=== PATIENT | male | born 2000 | race Two or more races ===

== ENCOUNTER 2025-07-25 04:12 | Emergency (ER) | payer MEDICAID, SELFPAY ==
[2025-07-25 04:18] VITALS: BMI 20.9
[2025-07-25 04:25] VITALS: BP 129/69; PULSE 92; RESP 17; TEMP 37.3; O2SAT 97
--- NOTE | 2025-07-25 04:39 | EDNOTE_ITS ---
Lower Extremity Injury RME/HPI General Chief Complaint: Extremity Injury, Lower Stated Complaint: R KNEE INJURY Time Seen by Provider: 07/25/25 04:34 Arrival date/time: 07/25/25 04:12 25M with no significant PMH presents to ED with R thigh pain after he stepped in a pot hole. Patient admits to drinking. Limitations: no limitations Related Data Previous Rx's ?Medication ?Instructions ?Recorded cephalexin 500 mg capsule 500 mg PO TID #15 caps 08/28 ondansetron 4 mg disintegrating 4 mg PO Q8H PRN nausea and 07/25/22 tablet vomiting #10 tabs diphenhydramine HCl 25 mg capsule 25 mg PO TID PRN all ergy symptoms 01/02/24 (Benadryl) #20 caps prednisone 20 mg tablet 20 mg PO QDAY #3 tabs hydrocortisone 2.5 % topical cream 1 applic topical BI D PRN itching 01/16/24 #30 grams permethrin 5 % topical cream 1 applic topical Q14D 2 d oses #60 01/16/24 grams Allergies Allergy/AdvReac Type Severity Reaction Status Date / Time No Known Allergies Allergy Verified 07/25/25 04:21 Review of Systems Review of Systems Systems Reviewed: All systems reviewed, normal except as documented Constitutional Constitutional: Reports system reviewed and no additional complaints, except as documented, Denies fever(s) and Denies headache(s) ENT Ears, Nose, Mouth, and Throat: Denies disequilibrium and Denies headache(s) Cardiovascular Cardiovascular: Reports system reviewed and no additional complaints, except as documented, Denies chest pain and Denies dyspnea Respiratory Respiratory: Reports system reviewed and no additional complaints, except as documented, Denies cough and Denies dyspnea Gastrointestinal Gastrointestinal: Reports system reviewed and no additional complaints, except as documented, Denies abdominal pain, Denies nausea and Denies vomiting Musculoskeletal Musculoskeletal: Reports as per HPI and Reports arthralgias Neurologic Neurologic: Reports system reviewed and no additional complaints, except as docu mented, Denies confusion, Denies disequilibrium and Denies headache(s) Psychiatric Psychiatric: Denies confusion Past Medical History Past Medical History CARDIAC: Negative Congestive Heart Failure RESPIRATORY: Negative Chronic Obstructive Pulmonary Disease (COPD) GENITOURINARY: Negative Renal Disease ENDOCRINE: Negative Diabetes Mellitus Type 1 or Diabetes Mellitus Type 2 Social History SMOKING STATUS: Never smoker ED Exam General Limitations: Present no limitations General appearance: Present alert and in no apparent distress Head Head exam: Present atraumatic Eye Eye exam: Present normal appearance, PERRL and EOMI ENT ENT exam: Present normal exam, normal oropharynx and mucous membranes moist Neck Neck exam: Present normal inspection, full ROM and trachea midline Chest Chest inspection: Present normal inspection and symmetric chest wall rise Respiratory Respiratory exam: Present normal lung sounds bilaterally Cardiovascular Cardiovascular exam: Present regular rate, normal rhythm and normal heart sounds Abdominal Exam Abdominal exam: Present soft and normal bowel sounds Extremities Exam Extremities exam: Present normal inspection and full ROM Back Exam Back exam: Present normal inspection and full ROM Neurological Exam Neurological exam: Present alert, oriented X3 and CN II-XII intact Psychiatric Psychiatric exam: Present normal affect and normal mood Skin Skin exam: Present warm, dry, intact and normal color Course Quality Measures none Orders Category Date Time Status Naproxen [Naprosyn] Med 07/25/25 04:35 Discontinued 500 mg PO X1 ONE Vital Signs Vital signs: Vital Signs Temperature 99.2 F 07/25/25 04:25 Pulse Rate 92 07/25/25 04:25 Respiratory Rate 17 07/25/25 04:25 Blood Pressure 129/69 07/25/25 04:25 Pulse Oximetry (%) 97 07/25/25 04:25 Oxygen Delivery Method Room Air 07/25/25 04:25 O2 at 97% on RA and WNLs Extremity Injury, Lower MDM Narrative MDM Narrative:: 25M with no significant PMH presents to ED with R thigh pain after he stepped in a pot hole. Patient admits to drinking. Physical exam reveals no gross RLE abnormalities. ROM intact. Gait slight limp, but can bear weight. Patient is afebrile, calm, but intoxicated. Meds and automobile travel club counselor given. [id number], who is not intoxicated is going to drive him home. Patient data External records reviewed:: [facility] previous records Clinical information provided by:: patient Social determinants that could affect healthcare access:: alcohol use Patient has the following chronic illnesses:: none How is presenting disease/condition affected by chronic disease/condition?: no chronic disease Evaluation data The following diagnostics were reviewed and interpreted by me:: other (specify) (none) Lab and/or radiology exams considered but not ordered:: not ordered Interpretation Summary: n/a Medications / Prescriptions Medications or Prescriptions considered but not ordered:: ordered Medication administrations:: Medication Administration History Discontinued Medications Naproxen (Naproxen 250 Mg Tablet) 500 mg PO X1 ONE Stop: 07/25/25 04:36 above Consultations Consultation(s) initiated? (list below): No Diagnosis Extremity Injury, Lower Differential Diagnosis: ankle sprain and strain, acute internal derangement of knee, fracture of femur, fracture of hip, puncture wound of foot, fracture of toe, ankle fracture and other (muscle strain RLE) Most likely diagnosis given after review of the tests above:: muscle strain RLE Admission Indicated Admission indicated?: not indicated Admission Request Was there a request for admission?: No Disposition Plan Disposition Plan: Discharge Discharge Attestation Discharge Attestation: The patient and all family members were given an opportunity to ask questions and understood the discharge instructions. Discharge instructions specifically effects, indications for sooner follow up or return to the emergency department, and the expected course of current diagnosis. Patient condition: Stable Discharge Plan Plan Patient Disposition: HOME (Self Care) Discharge Disposition comment: Stable Prescriptions/Referrals Prescriptions/Med Rec: No Action cephalexin 500 mg capsule 500 mg PO TID Qty: 15 0RF ondansetron 4 mg tablet,disintegrating 4 mg PO Q8H PRN (Reason: nausea and vomiting) Qty: 10 0RF diphenhydramine HCl [Benadryl] 25 mg capsule 25 mg PO TID PRN (Reason: allergy symptoms) Qty: 20 0RF prednisone 20 mg tablet 20 mg PO QDAY Qty: 3 0RF permethrin 5 % cream 1 applic topical Q14D Qty: 60 0RF Rx Instructions: apply second treatment 14 days after first treatment if still has symptoms hydrocortisone 2.5 % cream 1 applic topical BID PRN (Reason: itching) Qty: 30 0RF Problem List Clinical Impression: Muscle strain of right lower extremity Patient/Caregiver Discharge Instructions Education Materials: ED Muscle Strain, Extremity Additional Instructions: Please follow-up with PCP within 24-48 hours and return immediately if symptoms worsen. If problem persists, recommend outpatient PT and/or MRI follow-up. In the meantime, rest, use ice/heat, and/or compression. Print Language: [place] Stand Alone Forms: Patient Portal Info Letter JOÃO/STEPHANIE Supervising Physician YULIET Supervising Physician: Dr. Thurston
[2025-07-25] MEDS: NAPROXEN 250 MG TABLET 500 MG PO (04:52)
== END 2025-07-25 04:57 | disposition home or self-care (01) ==
LOC: SERX 04:46
PROVIDERS: Emergency Provider Emergency Medicine; PCP Registered Nurse Community Health
DX: S86.911A Strain of unspecified muscle(s) and tendon(s) at lower leg level, right leg, initial encounter (principal); X58.XXXA Exposure to other specified factors, initial encounter
CPT/HCPCS: 99282; A9270